=== PATIENT | male | born 2000 | race Caucasian/White ===

== ENCOUNTER → 2023-07-03 | Outpatient (CLI) | payer OTHER | LOC: M RAD 16:07 | PROVIDERS: ATTEND General Practice | DX: M25.539 Pain in unspecified wrist (principal); M25.331 Other instability, right wrist; S63.8X1A Sprain of other part of right wrist and hand, initial encounter; X58.XXXA Exposure to other specified factors, initial encounter; Y92.9 Unspecified place or not applicable; Y93.9 Activity, unspecified; Y99.9 Unspecified external cause status ==